=== PATIENT | female | born 1960 | race Caucasian/White ===

== ENCOUNTER 2018-05-02 12:17 | Inpatient (IN) | payer MEDICAID ==
[~2018-05-02] VITALS: Ht 149.9 cm; Wt 87.1 kg
[2018-05-02 12:32] VITALS: BP_SYST 104
--- NOTE | 2018-05-02 12:41 | NUR ---
Patient to ER bed 4 to gown for evaluation. Side rails up. Report given to Heraclio GORDON.
--- NOTE | 2018-05-02 12:45 | NUR ---
patient arrived AOx4 from home with family at bedside. patient states she recieved a call from her doctors office regarding abnormal lab values. patient states she has felt weak the past 3 days but has no other complaint. patient denies n/v/d or bleeding of any kind. patient has right sided weakness s/p stroke with slurred speech. no other complaint or injury at this time.
--- NOTE | 2018-05-02 12:45 | NUR ---
ER at bedside examining patient.
[2018-05-02 13:32] LABS: BILIRUBIN,URINE NEGATIVE (NEGATIVE); BLOOD, URINE NEGATIVE (NEGATIVE); CLARITY/URINE CLEAR (CLEAR); COLOR,URINE YELLOW (YELLOW); GLUCOSE,URINE NEGATIVE (NEGATIVE); KETONES,URINE NEGATIVE (NEGATIVE); LEUKOCYTE ESTERASE ,URINE NEGATIVE (NEGATIVE); NITRITE, URINE NEGATIVE (NEGATIVE); PH,URINE 6.5 (5.0-8.0); PROTEIN URINE NEGATIVE (NEGATIVE); UROBILINOGEN,URINE 0.2 (0.2-1.0)
[2018-05-02 13:43] LABS: CALCIUM 9.4 mg/dL (8.4-11.0); CREATININE 1.75 mg/dL (0.55-1.30); POTASSIUM 3.6 mmol/L (3.5-5.1)
[2018-05-02 13:47] LABS: INR 1.7 (0.8-1.2); PROTHROMBIN TIME 17.1 SECS (9.5-12.5)
[2018-05-02 14:04] LABS: ALBUMIN 2.9 g/dL (3.4-4.8); TOTAL BILIRUBIN 0.9 mg/dL (0.0-1.0)
[2018-05-02 14:12] LABS: RED BLOOD CELL COUNT(AUTO) 2.95 MIL/uL (4.2-6.2); WHITE BLOOD COUNT (AUTO) 8.9 K/uL (4.8-10.8)
[2018-05-02 14:14] LABS: HEMATOCRIT 18.3 % (36-48); HEMOGLOBIN 4.9 g/dL (12.0-16.0); MEAN CORPUSCULAR HEMOGLOBIN 17 pg (27-31); MEAN CORPUSCULAR HGB CONC 27 % (32-36); MEAN CORPUSCULAR VOLUME 62 fL (79.0-98.0)
[2018-05-02 14:15] LABS: PLATELET COUNT (AUTO) 529 K/uL (130-430); RED CELL DISTRIBUTION WIDTH 22.9 % (9.0-15.0)
--- NOTE | 2018-05-02 14:25 | NUR ---
patients family at bedside, patient resting well without distress.
[2018-05-02 14:34] LABS: LYMPHOCYTES % (AUTO) 15.1 % (20.5-51.5); NEUTROPHILS % (AUTO) 75.9 % (40.0-70.0)
[2018-05-02 14:35] LABS: BASOPHILS % (AUTO) 1.1 % (0.0-2.0); EOSINOPHILS % (AUTO) 0.4 % (0.0-4.0); LYMPHOCYTES # (AUTO) 1.3 K/uL (1.0-5.5); MONOCYTES # (AUTO) 0.7 K/uL (0.0-1.0); MONOCYTES % (AUTO) 7.5 % (1.7-9.3); NEUTROPHILS # (AUTO) 6.7 K/uL (1.8-7.7)
[2018-05-02 15:40] LABS: INR 1.7 (0.8-1.2); PROTHROMBIN TIME 16.9 SECS (9.5-12.5)
--- NOTE | 2018-05-02 16:46 | NUR ---
Consent signed per md hernandez agreeing to administration of blood. Blood has been type and crossmatched. Blood sent from blood bank. Information on unit of blood checked against patient wristband at bedside by two nurses. All information matches. Patient or responsible alliance party informed of potential complications associated with blood transfusion. Informed of possible transfusion reaction symptoms. Aware of need to notify nurse at once of itching, shortness of breath, flushing, feeling of impending doom, or other symptoms not previously present. Vital signs taken within 5 minutes prior to initiation of transfusion. RN will remain with patient for first 15 minutes of transfusion at which time vital signs will be re-assessed.
--- NOTE | 2018-05-02 17:00 | NUR ---
Patient will be admitted to care of MD Gilberto. Admitted to Telemetry unit. Will go to room 118B. Belongings list completed. Summary report printed. Report will be given at bedside.
--- NOTE | 2018-05-02 17:00 | NUR ---
Note mariposa in ED - 05/02/18 at 1823 by [email or web address] Patient will be admitted to care of MD Gilberto. Admitted to MedSurg unit. Will go to room 105B. Belongings list completed. Summary report printed. Report will be given at bedside.
[2018-05-02 17:06] LABS: TOTAL IRON BIND. CAPACITY 440 ug/dL (250-450)
[2018-05-02] MEDS ORDERED: METO-540 (17:07)
[2018-05-02] MEDS ORDERED: BUME1TAB4 PO (17:07)
[2018-05-02] MEDS ORDERED: LIP40 (17:07)
[2018-05-02] MEDS ORDERED: SPIR25TA PO (17:07)
[2018-05-02] MEDS ORDERED: RIVA20TA PO (17:07)
[2018-05-02] MEDS ORDERED: ECO81 (17:07)
[2018-05-02] MEDS ORDERED: AZIT250T (17:07)
[2018-05-02] MEDS ORDERED: AMI200 (17:07)
[2018-05-02 17:26] VITALS: BP_SYST 129
--- NOTE | 2018-05-02 17:26 | NUR ---
ADMISSION: Received from ER on a gurney with the diagnosis of severe anemia. Oriented x4, baseline is ambulatory. Oriented to room routine. Call light within reach. Addendum: 05/02/18 at 1757 by Cecy Hernandez RN Blood is infusing at 125 cc/hr when received from ER on the left AC gauge 20.
[2018-05-02] MEDS ORDERED: ACETAMINOPHEN 325 MG TABLET PO PRN (19:00)
[2018-05-02] MEDS ORDERED: ZOLPIDEM TARTRATE 5 MG TABLET PO PRN (19:00)
[2018-05-02] MEDS ORDERED: DIPHENHYDRAMINE INJ 50 MG/ML VIAL IVP PRN (19:00)
--- NOTE | 2018-05-02 19:10 | NUR ---
Bedside report was obtained from day shift nurse. Pt is fully awake, alert and oriented x4. Blood transfusion is in progress via LAC and no signs of infiltration noted at the IV site. Pt's son is at the bedside. Fall and safety precautions are in place.
[2018-05-02 20:00] VITALS: BP_SYST 96
--- NOTE | 2018-05-02 20:00 | NUR ---
1st unit PRBC transfusion completely transfused and no transfusion reaction noted. Pt remains fully awake, alert and oriented x4. Fall and safety [id number] are in place.
--- NOTE | 2018-05-02 20:15 | NUR ---
Pt ambulated to the bathroom with her quad cane with slow and unsteady gait. Pt was offered bedside commode, but pt declined. Pt urinated clear yellowish urine in the toilet and ambulated back to bed with her quad cane. Gait remains slow and unsteady. Pt is weak on her right side. Fall and safety precautions are in place. Call light is with pt and bed alarm is on. Pt was instructed to call for assistance as needed and before getting OOB and pt verbalized understanding.
--- NOTE | 2018-05-02 20:40 | NUR ---
2nd Unit PRBC Transfusion: Consent already signed per agreeing to administration of blood. Blood has been typed and crossmatched. Blood was sent from blood bank. Information on unit of blood was checked against patient's wristband at bedside by two nurses. All information matched. Patient was informed of potential complications associated with blood transfusion. Pt was informed of possible transfusion reaction symptoms. Pt is aware of need to notify nurse at once of itching, shortness of breath, flushing, feeling of impending doom, or other symptoms not previously present. Vital signs were taken within 5 minutes prior to initiation of transfusion. RN will remain with patient for first 15 minutes of transfusion at which time vital signs will be re-assessed.
--- NOTE | 2018-05-02 20:55 | NUR ---
Blood transfusion is in progress and no transfusion reaction noted. IV site is without any signs of infiltration.
--- NOTE | 2018-05-02 21:10 | NUR ---
Pt ambulated to the bathroom with her quad cane with slow and very unsteady gait. Pt refused assistance with ambulation and states, "I do it by myself." Pt urinated clear yellowish urine in the toilet and ambulated back to bed with her quad cane. Fall and safety precautions are in place. Call light is with pt and bed alarm is on. Pt was instructed to call for assistance as needed and before getting OOB and pt verbalized understanding. Blood transfusion is in progress and no transfusion reaction noted. IV site is without any signs of infiltration.
--- NOTE | 2018-05-02 21:57 | NUR ---
CONSULT CONSULT CALLED FOR DR. FINNEGAN REASON FOR CONSULT: ANEMIA REQUESTING CONSULT: DR. CHAUDHARY AIR DEFENCE OFFICER PHONE NUMBER: [phone]
--- NOTE | 2018-05-02 21:59 | NUR ---
CONSULT CONSULT CALLED FOR DR. TEO MCINTYRE SOCIALLY RESPONSIBLE INVESTMENT ADVISER FOR TOMORROW MORNING I SPOKE WITH ENZO CASTANEDA REASON FOR CONSULT: GI BLEEDING REQUESTING CONSULT: DR. CHAUDHARY HEAVY MEDIA OPERATOR PHONE NUMBER: [phone]
--- NOTE | 2018-05-02 22:01 | NUR ---
CONSULT CONSULT CALLED FOR DR. PERDOMO I SPOKE WITH ENZO BRIGGS PIPE FINISHER FOR DR. PERDOMO REASON FOR CONSULT: PAF REQUESTING CONSULT: DR. CHAUDHARY KENO MANAGER PHONE NUMBER: [phone]
--- NOTE | 2018-05-02 22:55 | NUR ---
Pt ambulated to the bathroom with her quad cane with slow and very unsteady gait. Pt urinated clear yellowish urine in the toilet and ambulated back to bed with her quad cane. Fall and safety precautions are in place. Call light is with pt and bed alarm is on. Pt was instructed to call for assistance as needed and before getting OOB and pt verbalized understanding. Blood transfusion is in progress and no transfusion reaction noted. IV site is without any signs of infiltration.
--- NOTE | 2018-05-02 23:20 | NUR ---
2nd unit PRBC transfusion completely transfused and no transfusion reaction noted. Fall and safety precautions are in place.
[2018-05-02] MEDS: NACL 0.9% 1,000 ML IV SCH (23:24)
[2018-05-02 23:57] VITALS: BP_SYST 119
--- NOTE | 2018-05-03 00:50 | NUR ---
Pt requested to leave left upper side rail down and was told it has to be up for her safety. Pt then stated she will sign out AMA if the side rail is not down. Pt ambulated to the bathroom with her quad cane with slow and very unsteady gait. RN was standby since pt does not want to be touched while she is ambulating. Pt stated she has been independent for 20 years and she signed herself out AMA at the Rehab facility so that she could get her kids back from the government. Pt urinated clear yellowish urine in the toilet and then ambulated back to bed with her quad cane. Pt sat at the edge of her bed for [id number] minutes and stood at her bedside for approximately 5 minutes before getting back in bed. Three side rails are up (two upper and 1 lower) and bed alarm is on. Pt agreed to leave upper side rails up for her safety. Call light is with pt. Charge nurse was informed about pt's intention to sign out AMA.
--- NOTE | 2018-05-03 02:45 | NUR ---
Pt ambulated to the bathroom with her quad cane with slow and very unsteady gait. Pt urinated clear yellowish urine in the toilet and ambulated back to bed with her quad cane. PROJECT CONTROL OFFICER was standby assist. Fall and safety precautions are in place. Call light is with pt and bed alarm is on. Pt was instructed to call for assistance as needed and before getting OOB and pt verbalized understanding. IVF is infusing well in LAC without any signs of infiltration.
[2018-05-03] MEDS: SPIRONOLACTONE 25 MG TABLET (ALDACTONE) PO SCH (09:00)
[2018-05-03] MEDS: ATORVASTATIN 20 MG TABLET PO SCH (09:00)
[2018-05-03] MEDS: AMIODARONE HCL 200 MG TABLET PO SCH (09:00)
--- NOTE | 2018-05-03 10:28 | NUR ---
DC Planning: Received a call from DARYL Schwarz at [facility] requesting pt transfer into net work. The pt. is capitated to [facility] and [facility]. CM faxed ED notes HP, FS and DANIE , attn daryl Schwarz at fax# [phone], tel # [phone]. The assigned CM is Aleksey [id number]. Addendum: 05/03/18 at 1402 by Kia Dover RN >> reported to Monealvinoben that the pt. will be getting one more unit [facility] at 1415 and she already has the MD balwinder to transfer order when bed available. The pt. is homeless and staying in mot close by. The pt. has 2 maxillofacial prosthodontist dogs. Her h car rodriguez at this parking lot. Aleksey will consult with her emergency medical technician basic whether to transfer the pt or authorize inpt here.Aleksey will call back with result by 430 pm. If the pt required the transfer, she will call nursing station with the transfer instruction. May use [facility], [facility] or [facility] for ALS tranfer with auth # [id number]. Addendum: 05/03/18 at 1550 by Kia Dover RN CM informed plan per her MG to transfer to inpatient network tentatively to the [facility] in the area mentioning above. The pt. stated she wants to go AMA , does not want the transfer. The pt. made aware that her insurance will deny this admission and she may bare financial responsibility for this hospital stay. Informed Aleksey that GI consult is done and plans to do the EGD tomorrow. With the POC , Monealvinoben will initiate the peer to peer for the transfer today. If accepted the pt. is to transfer to [facility]. The patient made aware of the transfer process which she does not agree. She called [facility] customer service requesting not to transfer and was given the same info/financial responsibility as CM provided. EVAN Juárez made aware.
--- NOTE | 2018-05-03 12:03 | NUR ---
Rounds: Patient in chair resting, eating lunch. Patient denies pain and discomfort. Breathing is even and unlabored with no distress noted. IVF infusing with no signs of infiltration. Morning medications tolerated well. Safety precautions in place and call light within reach. No needs at this time. Will continue to monitor.
[2018-05-03 12:32] VITALS: BP_SYST 113
[2018-05-03 13:13] LABS: HEMOGLOBIN 7.7 g/dL (12.0-16.0); RED BLOOD CELL COUNT(AUTO) 3.66 MIL/uL (4.2-6.2); WHITE BLOOD COUNT (AUTO) 8.7 K/uL (4.8-10.8)
[2018-05-03 13:14] LABS: HEMATOCRIT 25.9 % (36-48); MEAN CORPUSCULAR HEMOGLOBIN 21 pg (27-31); MEAN CORPUSCULAR HGB CONC 30 % (32-36); MEAN CORPUSCULAR VOLUME 71 fL (79.0-98.0); PLATELET COUNT (AUTO) 440 K/uL (130-430)
[2018-05-03 13:15] LABS: BASOPHILS # (AUTO) 0.1 K/uL (0.0-0.2); BASOPHILS % (AUTO) 0.9 % (0.0-2.0); CALCIUM 9.4 mg/dL (8.4-11.0); CREATININE 1.41 mg/dL (0.55-1.30); EOSINOPHILS # (AUTO) 0.1 K/uL (0.0-0.4); EOSINOPHILS % (AUTO) 0.8 % (0.0-4.0); LYMPHOCYTES # (AUTO) 1.3 K/uL (1.0-5.5); MONOCYTES # (AUTO) 0.6 K/uL (0.0-1.0); MONOCYTES % (AUTO) 6.8 % (1.7-9.3); NEUTROPHILS # (AUTO) 6.7 K/uL (1.8-7.7); NEUTROPHILS % (AUTO) 76.5 % (40.0-70.0)
--- NOTE | 2018-05-03 13:47 | NUR ---
SS NOTES: FINANCIAL SERVICES AGENT met with pt due to referral of "homelessness" and "assessment". FINANCIAL SERVICES AGENT verified and updated demographic information. Pt is a 58 year old single female who has been homeless for 2 1/2 years. Pt states she's been living in motels around the area. Pt states she receives SSI benefits every 1st of the month of $1000. Pt states she is connected with Section [employer], food [place] and has a primary physician that she sees (Dr. Homer Jimenez). Pt states she is independent with her ADL's and uses a cane and a wheelchair as her DME. Pt states she prefers to use the cane because the wheelchair is too heavy to bring to/from the car. Pt owns a vehicle that she drives in the community. Pt states she has a son but unable to live with him because he lives on the second floor and has 3 other roommates. Pt states she finds support from her 2 "aircraft skin burnisher dogs". Pt states she's been on the wait list for section 8 for over a year. Pt denies any history of mental health or substance use other than smoking. Pt was concerned about her vehicle parked in the hospital premises of being towed; provided vehicle information to [employer]. FINANCIAL SERVICES AGENT provided pt with homeless resources, winter shelters, motel list in the area, homeless waiver form and informed security of clothing needs. SS will remain available.
--- NOTE | 2018-05-03 14:35 | NUR ---
BT INITIATION: Consent signed per patient agreeing to administration of blood. Blood has been type and crossmatched. Blood sent from blood bank. Information on unit of blood checked against patient wristband at bedside by two nurses. All information matches. Patient or responsible alliance party informed of potential complications associated with blood transfusion. Informed of possible transfusion reaction symptoms. Aware of need to notify nurse at once of itching, shortness of breath, flushing, feeling of impending doom, or other symptoms not previously present. Vital signs taken within 5 minutes prior to initiation of transfusion. RN will remain with patient for first 15 minutes of transfusion at which time vital signs will be re-assessed.
--- NOTE | 2018-05-03 14:50 | NUR ---
15 minutes post blood transfusion: Patient shows no signs of allergic reaction. Vital signs stable. Will continue to monitor.
--- NOTE | 2018-05-03 15:52 | NUR ---
Rounds: Patient in chair resting. Blood transfusing, no signs of reaction or distress noted. Patient denies pain and discomfort. Safety precautions in place and call light within reach. Will continue to monitor.
--- NOTE | 2018-05-03 16:16 | NUR ---
Discharge Planning: DCP faxed pt referral to [facility] (f [phone] p [phone]), [facility] (f [phone] p [phone]) DCP to follow up Addendum: 05/03/18 at 1629 by Shakila Dickens DP WRONG PT DISREGARD
[2018-05-03 16:21] VITALS: BP_SYST 105
--- NOTE | 2018-05-03 16:29 | NUR ---
Discharge Planning: KASANDRAP made packet ordered Rad CD and made transportation with [facility] [phone]) Will Call Auth# [id number]. Packet taken to nurse station.
--- NOTE | 2018-05-03 16:45 | NUR ---
Blood Transfusion Complete: Blood transfusion complete. No reaction. Patient tolerated well.
--- NOTE | 2018-05-03 18:16 | NUR ---
Closing Note:: Patient in chair resting, alert and oriented. Patient denies pain and discomfort. Breathing is even and unlabored with no distress noted. IV patent and intact running IVF with no signs of infiltration. Safety precautions in place and call light within reach. All needs met. Will endorse plan of care to NOC, nurse.
--- NOTE | 2018-05-03 19:25 | NUR ---
OPENING NOTE RECEIVED CARE OF PT. PT SITTING IN BED, AAOX4. IVF INFUSING ORDERED, NO SIGN OF INFILTRATION AT IV SITE. PT IS REFUSING FOR BED ALARM TO BE ON, AND FOR LEFT SIDE RAILS TO BE UP. PT EDUCATED REGARDING SAFETY PROTOCOLS, HOWEVER PT CONTINUES TO REFUSED. PT ENCOURAGED TO CALL FOR ASSISTANCE. WILL MONITOR.
[2018-05-03 20:00] VITALS: BP_SYST 116
--- NOTE | 2018-05-03 21:30 | NUR ---
AMBULATED TO RESTROOM PT AMBULATED TO RESTROOM WITH 4 POINT WALKER AND NURSE ASSIST. GAIT NOTED TO BE UNSTEADY. PT RETURNED TO CHAIR PER REQUEST. PT'S SON IS AT BEDSIDE. ENCOURAGED PT TO CALL FOR ASSISTANCE. SAFETY MAINTAINED. WILL MONITOR.
[2018-05-03] MEDS: NACL 0.9% 1,000 ML IV SCH (21:45)
--- NOTE | 2018-05-03 23:20 | NUR ---
AMBULATED TO RESTROOM PT AMBULATED TO RESTROOM WITH CANE AND NURSE ASSIST. GAIT UNSTEADY. PT RETURNED TO BED, PT CONTINUES TO REFUSE BED ALARM AND LEFT SIDE RAILS. PT REPOSITIONED IN BED FOR COMFORT. IVF INFUSING ORDERED, NO INFILTRATION AT IV SITE. PT ENCOURAGED TO CALL FOR ASSISTANCE. WILL MONITOR.
[2018-05-03 23:51] VITALS: BP_SYST 117
--- NOTE | 2018-05-04 01:18 | NUR ---
SITTING UP IN CHAIR PT SITTING UP IN CHAIR, WATCHING TELEVISION. PT DENIES PAIN AT THIS TIME. IVF INFUSING ORDERED, NO INFILTRATION AT IV SITE. BREATHING IS UNLABORED TO ROOM AIR. PT ENCOURAGED TO CALL FOR ASSISTANCE. SAFETY MAINTAINED, CALL LIGHT IS WITH THE PT. WILL MONITOR.
--- NOTE | 2018-05-04 03:25 | NUR ---
SLEEPING PT SLEEPING ON HER SIDE, APPEARS COMFORTABLE, NO S/S OF ACUTE DISTRESS. VISIBLE SYMMETRICAL RISE AND FALL OF CHEST TO ROOM AIR. IVF INFUSING ORDERED, NO INFILTRATION AT IV SITE. SAFETY MAINTAINED AND CALL LIGHT WITH PT. SAFETY MAINTAINED. WILL MONITOR.
--- NOTE | 2018-05-04 05:40 | NUR ---
ROUNDS PT SITTING UP IN CHAIR, BROUGHT COFFEE PER REQUEST, DENIES PAIN OR DISCOMFORT. BREATHING IS UNLABORED TO ROOM AIR. IVF INFUSING ORDERED. PT ENCOURAGED TO CALL FOR ANY ASSISTANCE. SAFETY MAINTAINED. WILL MONITOR.
--- NOTE | 2018-05-04 06:31 | NUR ---
CLOSING NOTE PT SITTING UP IN CHAIR, WATCHING TELEVISION. PT APPEARS COMFORTABLE, DENIES PAIN OR DISCOMFORT. IV FLUIDS ARE INFUSING, NO INFILTRATION AT IV SITE. ENCOURAGED PT TO CALL FOR ASSISTANCE. SAFETY MAINTAINED. ALL NEEDS MET DURING SHIFT. WILL ENDORSE CARE TO DAY SHIFT RN.
--- NOTE | 2018-05-04 07:25 | NUR ---
Opening Note: Patient in bed resting, alert and oriented. Patient denies pain and discomfort. Breathing is even and unlabored with no distress noted. IV patent and intact running IVF with no signs of infiltration. Safety precautions in place and call light within reach. No needs at this time. Will continue to monitor.
[2018-05-04 08:03] VITALS: BP_SYST 103
[2018-05-04] MEDS: ATORVASTATIN 20 MG TABLET PO SCH (08:09)
[2018-05-04] MEDS: SPIRONOLACTONE 25 MG TABLET (ALDACTONE) PO SCH (08:10)
[2018-05-04 08:27] LABS: ALANINE AMINOTRANSFERASE 55 U/L (12-78); ALBUMIN 2.5 g/dL (3.4-4.8); ANION GAP 8 (5-15); ASPARTATE AMINOTRANSFERASE 31 U/L (10-37); CALCIUM 8.8 mg/dL (8.4-11.0); CHLORIDE 105 mmol/L (98-107); CREATININE 1.21 mg/dL (0.55-1.30); GLUCOSE 112 mg/dL (70-99); HDL CHOLESTEROL 23 mg/dL (>55); LDL CHOLESTEROL 24 mg/dL (<100); LIPASE 164 U/L (73-393); POTASSIUM 3.9 mmol/L (3.5-5.1); SODIUM SERUM 135 mmol/L (136-145); THYROID STIMULATING HORMONE 3.87 uIu/mL (0.34-4.82); TOTAL BILIRUBIN 1.1 mg/dL (0.0-1.0); TRIGLYCERIDES 35 mg/dL (30-150); UREA NITROGEN, BLOOD 22 mg/dL (8-21)
[2018-05-04 08:34] LABS: GFR AFRICAN AMERICAN 58 mL/min (>90)
[2018-05-04 08:50] LABS: WHITE BLOOD COUNT (AUTO) 8.5 K/uL (4.8-10.8)
[2018-05-04 08:51] LABS: BASOPHILS % (AUTO) 1.2 % (0.0-2.0); EOSINOPHILS % (AUTO) 1.1 % (0.0-4.0); HEMATOCRIT 28.6 % (36-48); HEMOGLOBIN 8.6 g/dL (12.0-16.0); LYMPHOCYTES % (AUTO) 13.8 % (20.5-51.5); MEAN CORPUSCULAR HEMOGLOBIN 22 pg (27-31); MEAN CORPUSCULAR HGB CONC 30 % (32-36); MEAN CORPUSCULAR VOLUME 72 fL (79.0-98.0); MONOCYTES % (AUTO) 6.4 % (1.7-9.3); NEUTROPHILS % (AUTO) 77.5 % (40.0-70.0); PLATELET COUNT (AUTO) 375 K/uL (130-430); RED BLOOD CELL COUNT(AUTO) 3.95 MIL/uL (4.2-6.2); RED CELL DISTRIBUTION WIDTH 29.4 % (9.0-15.0)
[2018-05-04 08:52] LABS: EOSINOPHILS # (AUTO) 0.1 K/uL (0.0-0.4); LYMPHOCYTES # (AUTO) 1.2 K/uL (1.0-5.5); MONOCYTES # (AUTO) 0.5 K/uL (0.0-1.0); NEUTROPHILS # (AUTO) 6.6 K/uL (1.8-7.7)
[2018-05-04] MEDS: AMIODARONE HCL 200 MG TABLET PO SCH ×2 (09:00→09:23)
[2018-05-04 10:27] LABS: CHOLESTEROL < 50 mg/dL (<200)
[2018-05-04 11:30] VITALS: BP_SYST 104
[2018-05-04 12:54] VITALS: BP_SYST 104
--- NOTE | 2018-05-04 13:26 | NUR ---
DC Planning: soledad Ryder, Peer to Peer initiated this am and dr. Graham at [facility] accepted the pt. The pt. is assigned to room 218, EVAN to report # [phone]. CM informed the pt of the transfer destination. The pt. agreed with the plan. The pt. wants to leave her car at [facility] parking lot. EVAN Juárez made aware and to arrange security personnel to meet with the pt to arrange for the parking detail.
--- NOTE | 2018-05-04 13:41 | NUR ---
Spoke to Security: Spoke to [employer] security personnel, made aware of patient's car staying in hospital parking lot.
--- NOTE | 2018-05-04 13:45 | NUR ---
Called [facility]: Called [facility] ambulance and arranged pickup at 1600.
--- NOTE | 2018-05-04 13:46 | NUR ---
Called Family: Called family and spoke to Ancelmo, son. Made aware of patient's transfer to [facility].
--- NOTE | 2018-05-04 13:49 | NUR ---
Called Report: Called [facility] and gave report to Caro, all questions answered and call back number given.
[2018-05-04 13:59] VITALS: BP_SYST 104
[2018-05-04 16:00] VITALS: BP_SYST 117
--- NOTE | 2018-05-04 16:45 | NUR ---
D/C Patient Patient given medication reconciliation form and D/C instructions. Exit Care provided. Patient verbalized understanding. MD discussed with patient the results and treatment provided. Patient in stable condition, ID band removed. IV catheter secured, intact and dressing applied, no active bleeding. Patient educated on pain management. All belongings sent with patient. Patient placed in pink gown and blanket. White wristband with name and placed. Transferred via [facility] to [facility].
[2018-05-05 10:40] LABS: RETICULOCYTE COUNT 2.6 % (0.5-1.5)
== END 2018-05-04 16:45 | disposition short-term general hospital (02) | DRG 663 ==
LOC: SED 12:17 → STU 16:12
PROVIDERS: ADMIT Internal Medicine; ATTEND Internal Medicine
PROC: 30233N1 Transfusion of Nonautologous Red Blood Cells into Peripheral Vein, Percutaneous Approach (ICD-10-PCS; principal; 2018-05-02)
DX: D50.9 Iron deficiency anemia, unspecified (principal); N17.0 Acute kidney failure with tubular necrosis; D68.69 Other thrombophilia; I50.42 Chronic combined systolic (congestive) and diastolic (congestive) heart failure; I13.0 Hypertensive heart and chronic kidney disease with heart failure and stage 1 through stage 4 chronic kidney disease, or unspecified chronic kidney disease; E44.0 Moderate protein-calorie malnutrition; I48.0 Paroxysmal atrial fibrillation; K92.2 Gastrointestinal hemorrhage, unspecified; F17.210 Nicotine dependence, cigarettes, uncomplicated; N18.9 Chronic kidney disease, unspecified; E78.5 Hyperlipidemia, unspecified; I69.351 Hemiplegia and hemiparesis following cerebral infarction affecting right dominant side; Z59.0 Homelessness; Z79.01 Long term (current) use of anticoagulants; Z85.038 Personal history of other malignant neoplasm of large intestine; Z95.2 Presence of prosthetic heart valve; Z79.2 Long term (current) use of antibiotics; Z79.899 Other long term (current) drug therapy
CPT/HCPCS: 36415; 71045; 80048; 80053; 80061; 81003; 82272; 82728; 83540-TC; 83550-TC; 83690-TC; 83880; 84443-TC; 85025; 85044-TC; 85610-TC; 85730-TC; 86886; 86900; 86901; 86920; 87081; 93005; 93306; 99285; G0378; J7030; J7040; P9021

== ENCOUNTER 2019-07-24 21:43 | Emergency (ER) | payer MEDICAID ==
[~2019-07-24] VITALS: Ht 149.9 cm; Wt 81.6 kg
[~2019-07-24 21:43] MED LIST: AMI200; AZIT250T; BUME1TAB9 PO; ECO81; LIP40; METO-540; RIVA20TA PO; SPIR25TA PO
[2019-07-24 21:50] VITALS: BP_SYST 161
--- NOTE | 2019-07-24 21:50 | NUR ---
Patient triaged and placed in waiting room. VSS and patient appears in no acute distress at this time. Accompanied by SELF, awaiting available bed, and MD notified of need for MSE.
--- NOTE | 2019-07-24 23:07 | NUR ---
Patient to ER bed 5 to gown for evaluation. Side rails up. Report given to TERE GORDON.
--- NOTE | 2019-07-24 23:20 | NUR ---
Patient ambulated with cane to ER bed 5, a&o x4 stating she went to doctor this morning at [facility] and they were closed. Pt reports she needs medicine and receptionist telephone operator at [place] told her to go to ER. Pt states she needs a refill of her prescription of Percocet 10-325mg that she takes for chronic back pain for past 10 years. Pt does not have any other medical complaints at this time.
--- NOTE | 2019-07-24 23:23 | NUR ---
ER Dr. Cohen at bedside examining patient.
[2019-07-24 23:30] VITALS: BP_SYST 161
--- NOTE | 2019-07-24 23:30 | NUR ---
Patient given written and verbal discharge instructions and verbalizes understanding. ER MD discussed with patient the results and treatment provided. Patient in stable condition. ID arm band removed. No Rx given. Patient educated on pain management and to follow up with PMD. Pain Scale 10/10. Opportunity for questions provided and answered. Medication side effect fact sheet provided.
== END 2019-07-24 23:30 | disposition home or self-care (01) ==
LOC: SED 21:43
DX: Z76.0 Encounter for issue of repeat prescription (principal); Z79.899 Other long term (current) drug therapy; Z86.73 Personal history of transient ischemic attack (TIA), and cerebral infarction without residual deficits; Z85.038 Personal history of other malignant neoplasm of large intestine
CPT/HCPCS: 99281